=== PATIENT | female | born 1990 | race Caucasian/White ===

== ENCOUNTER 2017-02-08 16:16 | Emergency (ER) | payer MEDICAID ==
[~2017-02-08] VITALS: Ht 175.3 cm; Wt 66.0 kg
[2017-02-08 16:17] VITALS: BP 136/80; PULSE 102; RESP 20; TEMP 98.6; O2SAT 100
--- NOTE | 2017-02-08 16:34 | PD ---
Physical Exam Date Seen by Provider: Feb 08, 2017 Time Seen by Provider: 16:28 Data Data Last Documented VS Vital Signs Date Time Temp Pulse Resp B/P Pulse Ox O2 Delivery O2 Flow Rate FiO2 02/08/17 16:17 98.6 102 20 136/80 100 Room Air MDM Supervised Visit with BALDEMAR: No Narrative Course 26 YO 20 week female with complaint of "swollen taste buds," swollen lips, nausea x 1 week. Worse today. Followed by Dr. Mccullough. Vitals reviewed. Awaiting bed placement. Scripts No Active Prescriptions or Reported Meds Krista Louis Feb 08, 2017 16:34
--- NOTE | 2017-02-08 17:17 | PD ---
HPI Chief Complaint: Related Problem Time Seen by Provider: 16:38 Travel History International Travel<30 days: No Contact w/Intl Traveler<30days: No Traveled to known affect area: No History of Present Illness HPI Patient comes in complaining of irritation to her taste buds ongoing for a week. Patient denies any difficulty breathing, swallowing, fevers, or eating or drinking anything out of the ordinary. Patient states she's been nauseous today and has not been able to eat which is made her symptoms worse. Patient has appointment with her OB on Friday was going to let however her coworkers got her concerned that she decided to come be evaluated. Patient tried to go to [facility] but was redirected to the emergency department. Patient describes symptoms of burning like sensation on her tongue similar to feeling after eating too much sour candy. History Social History Alcohol Use: No Tobacco Use: No Allergies-Medications (Allergen,Severity, Reaction): Coded Allergies: No Known Allergies (Unverified , 02/08/17) Reported Meds & Prescriptions Reported Meds & Active Scripts Active No Active Prescriptions or Reported Medications Review of Systems Except as stated in HPI: all other systems reviewed are Neg Physical Exam Narrative GENERAL: Well-developed, well nourished, in no acute distress, and non-ill appearing. SKIN: Focused skin assessment warm and dry. HEAD: Atraumatic. Normocephalic. EYES: Pupils equal and round. EOMI. No scleral icterus. No injection or drainage. ENT: No nasal bleeding or discharge. Mucous membranes pink and moist. Patient is a geographic tongue. Some irritation to the taste buds noted. There is no evidence of stomatitis, thrush, abscesses, or hairy tongue. NECK: Trachea midline. No cervical lymphadenopathy or stridor. Supple. No nuclear rigidity. CARDIOVASCULAR: Regular rate and rhythm. No murmur appreciated. RESPIRATORY: No accessory muscle use. No respiratory distress. Clear to auscultation. Breath sounds equal bilaterally. Patient speaking in full sentences without difficulty. MUSCULOSKELETAL: No obvious deformities. No clubbing. No cyanosis. No edema. Full range of motion. NEUROLOGICAL: Awake and alert. No obvious cranial nerve deficits. Motor grossly within normal limits. Normal speech. PSYCHIATRIC: Appropriate mood and affect; insight and judgment normal. Data Data Last Documented VS Vital Signs Date Time Temp Pulse Resp B/P Pulse Ox O2 Delivery O2 Flow Rate FiO2 02/08/17 16:17 98.6 102 20 136/80 100 Room Air MDM Medical Screen Exam Complete: Yes Emergency Medical Condition: No Narrative Course History and physical exam findings are not consistent with an emergent medical condition. She was given the option of receiving additional care, but has declined. Therefore the appropriate counseling recommendations were discussed with the patient and she was instructed to follow-up with her primary care physician as soon as possible for reevaluation. Patient was also informed of community resources from which she can obtain additional care. She is agreeable and verbalizes an understanding of the proposed plan. The patient states she will immediately return to the emergency department if her current complaints do not improve, new symptoms arise, or emergent condition develops. Patient ambulated out of the emergency department without difficulty. Discussed patient with Dr. Conroy prior to discharge, who is in agreement with plan of care and disposition. Primary Impression: Encounter for medical screening examination Patient Instructions: General Instructions Departure Forms: Tests/Procedures Scripts No Active Prescriptions or Reported Meds Disposition: [facility]-ED USE ONLY Condition: Stable Haider Lyman Feb 08, 2017 17:17
== END 2017-02-08 17:06 | disposition left against medical advice (07) ==
LOC: NEPD 16:16
DX: R22.9 Localized swelling, mass and lump, unspecified (principal)
CPT/HCPCS: 99281

== ENCOUNTER → 2017-06-16 | Emergency (ER) | payer MEDICAID ==
[~2017-06-16] MED LIST: HEMOTAB PO; LABE100T2 PO
[2017-06-16 21:49] LABS: BASOPHIL % 0.3 % (0.0-2.0); EOSINOPHIL % 0.4 % (0.0-4.0); HEMO FLAGS DIFF FINAL; LYMPHOCYTE # 2.8 TH/MM3 (1.0-4.8); MEAN CELL VOLUME 90.5 FL (80.0-100.0); MEAN CORPUSCULAR HEMOGLOBIN 30.7 PG (27.0-34.0); MEAN CORPUSCULAR HGB CONC 33.9 % (32.0-36.0); MONO % 8.2 % (0.0-8.0); NEUT % 62.1 % (16.0-70.0); PLATELET COUNT 145 TH/MM3 (150-450); RED BLOOD COUNT 3.87 MIL/MM3 (4.00-5.30); RED CELL DISTRIBUTION WIDTH 12.9 % (11.6-17.2); WHITE BLOOD COUNT 9.7 TH/MM3 (4.0-11.0)
[2017-06-16 22:19] LABS: ALT (GPT) 14 U/L (10-53); ANION GAP 11 MEQ/L (5-15); AST (GOT) 12 U/L (15-37); BICARBONATE 20.5 MEQ/L (21.0-32.0); BLOOD UREA NITROGEN 12 MG/DL (7-18); CHLORIDE 105 MEQ/L (98-107); GLOMERULAR FILTRATION RATE 94 ML/MIN (>89); POTASSIUM 4.1 MEQ/L (3.5-5.1); SODIUM (NA) 136 MEQ/L (136-145)
[2017-06-16 22:23] LABS: ALKALINE PHOSPHATASE 156 U/L (45-117); TOTAL BILIRUBIN ADULT 0.3 MG/DL (0.2-1.0)
--- NOTE | 2017-06-17 09:51 | MH ---
cc: BENJY MCCULLOUGH DATE OF ADMISSION: 06/16/2017 She was seen at 20:15. HISTORY OF PRESENT ILLNESS Ms. Win is a 26-year-old white female, para 0-0-1-0, whose last menstrual period and early ultrasound put her at 38+ weeks. She called tonight after having intercourse and had a large gush of blood. She was concerned about the bleeding so I told her to come in. On speculum exam, it seemed like that was probably just her show. However, she did have some elevated blood pressures that we were concerned about so we kept her and did some lab work. PAST OB HISTORY She is para 0-0-1-0. PAST ORDER SELECTOR HISTORY Negative. Her Pap smear was negative. Her cultures are negative. PAST SURGICAL HISTORY D&E on 02/16/2016 for a missed AB. PAST MEDICAL HISTORY 1. Remarkable for anemia. 2. Carrier of Group B Strep. SOCIAL HISTORY She does not smoke; she was a former smoker. She does not drink alcohol. She is single. ALLERGIES No known drug allergies. CURRENT MEDICATIONS vitamins. REVIEW OF SYSTEMS No headaches, no scotoma. No right upper quadrant pain. No shortness of breath. No chest pressure or pain. The baby is moving well. She denies any rupture of membranes. She is having bleeding as in the HPI and that has abated completely. PHYSICAL EXAMINATION GENERAL: Her physical exam reveals a well-developed, well-nourished female in no acute distress, resting comfortably in bed. VITAL SIGNS: Her initial blood pressure was 130/80 and that is about where was in the first trimester. Her heart rate is 76. Her temperature is 98.4. Her tracings is Category I. HEENT: Normocephalic, atraumatic. NECK: Supple. Trachea is in the midline. There is no thyromegaly or adenopathy. CHEST: Clear to auscultation. HEART: Regular rate and rhythm. ABDOMEN: The abdomen is gravid, nontender. The fundus is nontender. The fundus is soft and the cervix is fingertip. I feel a bag there. On speculum exam there is a little bit of blood but there is no active bleeding. There is definitely no rupture of membranes that I can tell. EXTREMITIES: There is no clubbing, cyanosis or edema. Her ankles are easily visible and there is no swelling. The DTRs are +2 and equal. ASSESSMENT AND PLAN 1. Intrauterine at 38+ weeks. 2. Labile blood pressure with a little bit of protein in her urine. She has no other signs or symptoms of preeclampsia. Her first trimester blood pressure at 11 weeks and 1 day was 114/80. I do not think she is pre-eclamptic. 3. Carrier of Group B Strep. We need to give her penicillin when she is in labor. 4. Anemia. We will check her CBC when she comes in for labor but right now her hemoglobin is 11.9 which is normal. We plan to go ahead and send her home and if she continues leaking or having any more bleeding, she will come in. She was told to keep an eye on how the baby is moving. R. Benjy Mccullough MD RJV/SSB /10:47 PM /2:11 PM
== END | disposition home or self-care (01) ==
LOC: HOBED 20:01
DX: O46.93 Antepartum hemorrhage, unspecified, third trimester (principal); O99.013 Anemia complicating pregnancy, third trimester; O99.820 Streptococcus B carrier state complicating pregnancy; Z3A.38 38 weeks gestation of pregnancy
CPT/HCPCS: 59025; 80053; 85025

== ENCOUNTER 2017-06-24 12:02 | Inpatient (IN) | payer MEDICAID ==
[~2017-06-24] VITALS: Ht 175.3 cm; Wt 73.0 kg
[2017-06-24 12:29] VITALS: BP 147/106; PULSE 82
[2017-06-24] MEDS ORDERED: LIDOCAINE HCL 1% 50 ML VIAL INFIL PRN (13:00)
[2017-06-24] MEDS ORDERED: LIDOCAINE HCL 1% 50 ML VIAL I-DERMAL PRN (13:00)
[2017-06-24] MEDS ORDERED: MINERAL OIL 10 ML VIAL TOPICAL PRN (13:00)
[2017-06-24] MEDS ORDERED: CITRIC ACID-SODIUM CITRATE LIQ 30 ML UDC PO SCH (13:00)
[2017-06-24] MEDS ORDERED: NS 1000 ML IV PRN (13:00)
[2017-06-24] MEDS ORDERED: OXYTOCIN 30 UNITS 500ML PREMIX IV ONE (13:00)
[2017-06-24] MEDS ORDERED: PENICILLIN G POT 5,000,000 UNITS/NS 100 ML (Mini-Bag Plus) IV ONE ×2 (13:00)
[2017-06-24] MEDS ORDERED: NS 500 ML BOLUS IV PRN (13:00)
[2017-06-24] MEDS ORDERED: LACTATED RINGER'S 1000 ML BOLUS IV PRN (13:00)
[2017-06-24] MEDS ORDERED: [UNRECOGNIZED DRUG - OTHER] IV ONE (13:15)
[2017-06-24] MEDS ORDERED: NS 1000 ML OTHER PRN (13:15)
[2017-06-24] MEDS ORDERED: MAGNESIUM SULFATE 4 GM IV ONE (13:15)
[2017-06-24] MEDS ORDERED: MISOPROSTOL 25 MCG SUPP VAGINAL ONE (13:15)
[2017-06-24] MEDS: LACTATED RINGER'S 1000 ML IV SCH ×2 (13:17→20:46)
[2017-06-24 13:21] VITALS: RESP 18
[2017-06-24 13:33] LABS: AUTOMATED NEUTROPHIL # 6.3 TH/MM3 (1.8-7.7); BASOPHIL % 0.3 % (0.0-2.0); EOSINOPHIL % 0.4 % (0.0-4.0); HEMATOCRIT 36.4 % (35.0-46.0); HEMO FLAGS DIFF FINAL; LYMPH % 26.2 % (9.0-44.0); LYMPHOCYTE # 2.6 TH/MM3 (1.0-4.8); MEAN CELL VOLUME 91.4 FL (80.0-100.0); MEAN CORPUSCULAR HEMOGLOBIN 30.7 PG (27.0-34.0); MEAN CORPUSCULAR HGB CONC 33.6 % (32.0-36.0); MONO % 8.5 % (0.0-8.0); NEUT % 64.6 % (16.0-70.0); PLATELET COUNT 135 TH/MM3 (150-450); RED BLOOD COUNT 3.99 MIL/MM3 (4.00-5.30); WHITE BLOOD COUNT 9.7 TH/MM3 (4.0-11.0)
[2017-06-24 13:41] LABS: BLOOD, URINE MOD (NEG); COMMENT (UR) CULTURE INDICATED; CULTURE IF INDICATED CULTURE INDICATED; GLUCOSE,URINE NEG (NEG); KETONE, URINE NEG (NEG); MUCUS URINE FEW /lpf (OCC); NITRITE,URINE NEG (NEG); PH, URINE 6.5 (5.0-8.5); SQUAMOUS EPITHELIAL CELL URINE 10 /hpf (0-5); URINE COLOR YELLOW (YELLW/STRAW)
[2017-06-24 13:56] LABS: URIC ACID 8.3 MG/DL (2.6-6.0)
[2017-06-24 13:58] LABS: INDIRECT BILIRUBIN 0.2 MG/DL (0.0-0.8); TOTAL BILIRUBIN ADULT 0.3 MG/DL (0.2-1.0)
[2017-06-24] MEDS ORDERED: MAGNESIUM SULFATE 40 GM PREMIX 1,000 ML IV SCH (14:00)
[2017-06-24] MEDS ORDERED: PENICILLIN G POT 2,500,000 UNITS/NS 100 ML IV SCH ×2 (17:00)
[2017-06-24 17:20] VITALS: BP 133/92; PULSE 84; TEMP 99
[2017-06-24 17:21] VITALS: RESP 18
[2017-06-24] MEDS: MISOPROSTOL 25 MCG SUPP VAGINAL SCH ×2 (17:23→21:45)
[2017-06-24] MEDS ORDERED: ZOLPIDEM TARTRATE 5 MG TAB PO PRN (18:00)
--- NOTE | 2017-06-24 18:16 | MH ---
cc: BENJY CORREA DATE OF ADMISSION 06/24/2017 HISTORY OF THE PRESENT ILLNESS Ms. Win is a 26-year-old white female para 0-0-1-0 who is at 39+ weeks. She presented to the office with high blood pressure and a proteinuria. She denies any signs or symptoms of preeclampsia but her blood pressure remains elevated. We sent her over for delivery due to the preeclampsia. She understands the risks and benefits and the rationale behind induction at this time. PAST OB HISTORY She is para 0-0-1-0. She had a missed AB and had a dilation and curettage in 2016. She is GBS positive. PAST KNIFEMAN HISTORY Negative. PAST SURGICAL HISTORY Remarkable for ____. PAST MEDICAL HISTORY Negative. SOCIAL HISTORY Never smoker. She does not take drugs. She did have one glass of wine during her . She has never smoked. FAMILY HISTORY Negative. ALLERGIES NO KNOWN DRUG ALLERGIES. MEDICATIONS Current medications: Are none. REVIEW OF SYSTEMS She denies any scatoma, headaches. No chest pain. No chest pressure. She reports good movement. Denies any rupture of membranes, bleeding. PHYSICAL EXAMINATION GENERAL: Reveals a well-developed, well-nourished female who is slightly swollen. VITAL SIGNS: Her blood pressure is 147/106. HEENT: Normocephalic, atraumatic. NECK: Supple. Trachea is midline. No thyromegaly or adenopathy. CHEST: Clear to auscultation. HEART: Regular rate and rhythm without murmur. ABDOMEN: Gravid. Nontender. The fundus is not tender and appropriate height. PELVIC: Cervix is 1-2 cm, 70% effaced, vertex, -3, soft. LABORATORY DATA Her platelets are slightly low at 135. Her liver enzymes are normal. Her urine reveals 300 of protein. ASSESSMENT 1. Intrauterine at 39+ weeks. 2. Preeclampsia. PLAN 1. We will go ahead and admit her to the hospital. Get her Cytotec 2 or 3 doses until she goes into labor. If she does not go into labor after several doses of Cytotec, I would start Pitocin, break her water and see if we accomplish a vaginal delivery. 2. GBS positive. I would go ahead and give her penicillin with labor once the labor starts. I would also start magnesium sulfate once the labor starts. 3. Possibly urinary tract infection. We will check a culture tomorrow. I just stripped her before she came to the hospital so I feel that is probably why her urine looks dirty. R. MD HINA JerryV/KK /5:45 PM /5:50 PM
[2017-06-24 21:43] VITALS: BP 143/91; PULSE 99; RESP 18; TEMP 98.2
[2017-06-25] VITALS (93 sets, daily range): BP systolic 125–176; BP diastolic 72–123; PULSE 70–176; RESP 18; TEMP 98.2–99.4; O2SAT 96–100
[2017-06-25] MEDS ORDERED: MAGNESIUM SULFATE 4 GM PREMIX 100 ML ONE (03:45)
[2017-06-25] MEDS ORDERED: OXYTOCIN 30 UNITS/NS 500ML PREMIX IV SCH (04:00)
[2017-06-25] MEDS: LACTATED RINGER'S 1000 ML IV SCH (05:00)
[2017-06-25] MEDS ORDERED: fentaNYL 2MCG-BUPIV 0.125% INJ 100 ML ONE (05:26)
[2017-06-25] MEDS ORDERED: ePHEDrine/NS 25 MG/5 ML SYR IV PUSH PRN (06:15)
[2017-06-25] MEDS ORDERED: DO NOT ADMINISTER ANTICOAGULANTS PRN (06:15)
[2017-06-25] MEDS ORDERED: NO SYSTEM NARCOTICS PRN (06:15)
[2017-06-25] MEDS ORDERED: fentaNYL 2MCG-BUPIV 0.125% 100 ML EPIDURAL SCH (06:15)
--- NOTE | 2017-06-25 07:25 | HHI.PR ---
Subjective Remarks doing ok I do not like this magnesium,, My cervix is 5cm!! Objective Vital Signs Date Time Temp Pulse Resp B/P (MAP) Pulse Ox O2 Delivery O2 Flow Rate FiO2 06/25/17 07:00 105 125/96 (106) 99 06/25/17 06:55 95 98 06/25/17 06:50 102 99 06/25/17 06:47 18 06/25/17 06:45 96 137/88 (104) 97 06/25/17 06:45 96 06/25/17 06:40 89 97 06/25/17 06:35 96 98 06/25/17 06:30 138/95 (109) 98 06/25/17 06:30 97 06/25/17 06:25 103 99 06/25/17 06:20 95 98 06/25/17 06:15 144/99 (114) 98 06/25/17 06:15 97 06/25/17 06:10 98 98 06/25/17 06:05 99 98 06/25/17 06:00 126/90 (102) 99 06/25/17 06:00 135 06/25/17 05:55 103 06/25/17 05:55 145/100 (115) 99 06/25/17 05:54 18 06/25/17 05:51 106 153/92 (112) 06/25/17 05:50 108 98 06/25/17 05:45 117 143/93 (110) 98 06/25/17 05:40 119 166/111 (129) 98 06/25/17 05:37 176/94 (121) 06/25/17 05:37 83 06/25/17 05:35 124 99 06/25/17 05:34 110 06/25/17 05:34 165/123 (137) 06/25/17 05:30 171/106 (127) 06/25/17 05:30 109 98 06/25/17 05:20 98 97 06/25/17 05:15 103 164/108 (126) 99 06/25/17 05:10 103 99 06/25/17 05:05 95 97 06/25/17 05:00 102 06/25/17 04:55 101 97 06/25/17 04:50 112 98 06/25/17 04:45 153/99 (117) 98 06/25/17 04:45 95 06/25/17 04:40 107 151/98 (115) 06/25/17 04:35 113 06/25/17 04:35 96 06/25/17 04:35 159/99 (119) 06/25/17 04:33 18 06/25/17 04:31 101 06/25/17 04:20 84 156/93 (114) 06/25/17 04:20 20 06/25/17 04:18 77 143/88 (106) 06/25/17 02:48 70 157/92 (113) 06/24/17 21:43 18 06/24/17 21:43 98.2 06/24/17 21:43 99 143/91 (108) 06/24/17 17:21 18 06/24/17 17:20 84 133/92 (106) 06/24/17 17:20 99.0 06/24/17 13:21 18 06/24/17 12:29 82 147/106 (120) Result Diagram: 06/24/17 1245 Assessment and Plan Assessment and Plan IUP @ 39/2 Preeclampsia continue the Mag and expect a Basil Mccullough MD Jun 25, 2017 07:25
[2017-06-25] MEDS ORDERED: NIFEdipine 10 MG CAP ONE (10:07)
[2017-06-25] MEDS ORDERED: MISOPROSTOL 100 MCG TAB ONE (12:09)
[2017-06-25] MEDS ORDERED: OXYTOCIN 10 UNIT/ML AMP ONE (12:19)
--- NOTE | 2017-06-25 12:30 | PD.OB.DELI ---
Weeks gestation: 39 Gest age assessed date: Jun 25, 2017 Pt started active labor?: Yes Medical induction of labor?: Yes Medical induction start date: Jun 24, 2017 Artificial rupture of membrane: No Anesthesia: Epidural Episiotomy: Midline Vaginal Delivery: Normal Presentation: Occiput anterior Nuchal Cord: None Delayed cord clamping (45 sec): Yes Infant: Male Delivery date: Jun 25, 2017 Delivery time: 00:00 One Minute : 8 Five Minute : 8 Weight: 7/1 Placenta: Manual removal, Intact, Uterus explored +, 3 vessel cord Laceration: Episiotomy, 2 deg Repair: Vicryl running Estimated blood loss: 700 Additional Information Nice delivery Placenta not delivered after 15 minutes then I did a manual extraction. Uterus was atonic probably due to the magnesium. cytotec given 600 micrograms. Pitocin 10U IV.. Will massage uterus often and watch carefully. Basil Mccullough MD Jun 25, 2017 12:30
[2017-06-25] MEDS ORDERED: BENZOCAINE 20% TOPICAL SPRAY 60 ML CAN TOPICAL PRN (12:45)
[2017-06-25] MEDS ORDERED: CALCIUM GLUCONATE 10% 1 GM/10 ML VIAL IV PUSH PRN ×2 (12:45→14:30)
[2017-06-25] MEDS ORDERED: WITCH HAZEL 50%/GLYCERIN 12.5% 40 PAD JAR TOPICAL PRN (12:45)
[2017-06-25] MEDS ORDERED: LABETALOL HCL 100 MG/20 ML VIAL IV PUSH PRN ×3 (12:45→15:00)
[2017-06-25] MEDS ORDERED: DOCUSATE SODIUM 50 MG/SENNA 8.6 MG TAB PO PRN (12:45)
[2017-06-25] MEDS ORDERED: ALUMINUM/MAGNESIUM/SIMETH 30 ML CUP PO PRN (12:45)
[2017-06-25] MEDS ORDERED: ONDANSETRON ODT 4 MG TAB PO PRN (12:45)
[2017-06-25] MEDS ORDERED: oxyCODONE/ACETAMINOPHEN 5 MG/325 MG TAB PO PRN ×2 (12:45)
[2017-06-25] MEDS ORDERED: NIFEdipine 20 MG CAP PO PRN ×2 (14:30)
[2017-06-25] MEDS ORDERED: NIFEdipine 10 MG CAP PO PRN (14:30)
[2017-06-25] MEDS ORDERED: MISOPROSTOL 100 MCG TAB RECTAL ONE (14:45)
[2017-06-25] MEDS ORDERED: MISOPROSTOL 100 MCG TAB PO ONE (14:45)
[2017-06-25] MEDS ORDERED: OXYTOCIN 10 UNIT/ML AMP IV ONE (14:45)
[2017-06-25] MEDS ORDERED: OXYTOCIN 30 UNITS-500ML PREMIX 500 ML IV SCH (15:00)
[2017-06-25] MEDS ORDERED: OXYTOCIN 30 UNITS-500ML PREMIX 500 ML IV ONE ×2 (15:00→18:00)
[2017-06-25] MEDS ORDERED: hydrALAZINE HCL 20 MG/ML VIAL IV PUSH PRN ×2 (15:15)
[2017-06-25] MEDS ORDERED: MEASLES, MUMPS, RUBELLA VACCINE 0.5 ML VIAL SQ ONE (16:00)
[2017-06-25] MEDS ORDERED: DIPHTH/TETANUS/ACEL PERTUSSIS (BOOSTER) 0.5 ML VIAL/PFS IM ONE (16:00)
[2017-06-25] MEDS: ACETAMINOPHEN 325 MG TAB PO PRN ×2 (16:07→23:09)
[2017-06-25 17:08] LABS: HEMATOCRIT 32.8 % (35.0-46.0); MEAN CELL VOLUME 91.1 FL (80.0-100.0); MEAN CORPUSCULAR HEMOGLOBIN 30.1 PG (27.0-34.0); PLATELET COUNT 123 TH/MM3 (150-450); RED CELL DISTRIBUTION WIDTH 13.2 % (11.6-17.2); REVIEW FLAG FINAL
[2017-06-25 17:21] LABS: ALKALINE PHOSPHATASE 130 U/L (45-117); ALT (GPT) 28 U/L (10-53); ANION GAP 11 MEQ/L (5-15); AST (GOT) 40 U/L (15-37); BICARBONATE 17.9 MEQ/L (21.0-32.0); BLOOD UREA NITROGEN 12 MG/DL (7-18); CHLORIDE 104 MEQ/L (98-107); GLOMERULAR FILTRATION RATE 77 ML/MIN (>89); POTASSIUM 3.8 MEQ/L (3.5-5.1); SODIUM (NA) 133 MEQ/L (136-145); TOTAL BILIRUBIN ADULT 0.3 MG/DL (0.2-1.0)
[2017-06-25] MEDS: SODIUM CHLORIDE 0.9% FLUSH 10 ML FLUSH IV FLUSH SCH (20:19)
[2017-06-25] MEDS ORDERED: ZOLPIDEM TARTRATE 5 MG TAB PO PRN (21:00)
[2017-06-26] VITALS (14 sets, daily range): BP systolic 124–152; BP diastolic 75–113; PULSE 82–96; RESP 18; TEMP 97.7–98.1
[2017-06-26] MEDS: MAGNESIUM SULFATE 40 GM PREMIX 1,000 ML IV SCH ×2 (00:46→11:00)
[2017-06-26] MEDS: ACETAMINOPHEN 325 MG TAB PO PRN (04:19)
[2017-06-26] MEDS: LACTATED RINGER'S 1000 ML INJ 1,000 ML IV SCH ×2 (04:20→09:43)
[2017-06-26] MEDS: SODIUM CHLORIDE 0.9% FLUSH 10 ML FLUSH IV FLUSH SCH ×2 (09:00→21:00)
[2017-06-26 12:56] LABS: AUTOMATED NEUTROPHIL # 7.5 TH/MM3 (1.8-7.7); BASOPHIL % 0.2 % (0.0-2.0); EOSINOPHIL % 0.1 % (0.0-4.0); MEAN CELL VOLUME 90.5 FL (80.0-100.0); MEAN CORPUSCULAR HEMOGLOBIN 31.2 PG (27.0-34.0); MEAN CORPUSCULAR HGB CONC 34.4 % (32.0-36.0); MONO % 8.8 % (0.0-8.0); NEUT % 71.9 % (16.0-70.0); PLATELET COUNT 55 TH/MM3 (150-450); RED BLOOD COUNT 2.99 MIL/MM3 (4.00-5.30); RED CELL DISTRIBUTION WIDTH 13.5 % (11.6-17.2); WHITE BLOOD COUNT 10.4 TH/MM3 (4.0-11.0)
[2017-06-26 13:08] LABS: HEMO FLAGS AUTO DIFF
[2017-06-26 13:10] LABS: PLATELET ESTIMATE SMEAR LOW (NORMAL); PLATELET MORPHOLOGY NORMAL (NORMAL); SCAN/DIFF AUTO DIFF CONFIRMED
[2017-06-26 13:20] LABS: BICARBONATE 23.3 MEQ/L (21.0-32.0)
[2017-06-26 13:23] LABS: TOTAL BILIRUBIN ADULT 0.5 MG/DL (0.2-1.0)
[2017-06-26 13:27] LABS: CALCIUM-PROTEIN CORRECTED 7.4 MG/DL (8.5-10.1)
--- NOTE | 2017-06-26 15:26 | PD.PN.STU ---
Subjective Remarks Ms. Win is preeclamptic and post day one. she currently has no complaints and pain is controlled with tylenol. She reports normal vaginal bleeding. She denies headache, scotoma, shortness of breath, chest pain, abdominal pain, and edema. Objective Vitals Allergies Coded Allergies Type Severity Reaction Last Updated Verified No Known Allergies 02/08/17 No Laboratory Tests Test 06/24/17 12:45 06/25/17 16:45 06/26/17 12:33 White Blood Count 9.7 TH/MM3 21.0 TH/MM3 10.4 TH/MM3 Red Blood Count 3.99 MIL/MM3 3.60 MIL/MM3 2.99 MIL/MM3 Hemoglobin 12.2 GM/DL 10.8 GM/DL 9.3 GM/DL Hematocrit 36.4 % 32.8 % 27.0 % Mean Corpuscular Volume 91.4 FL 91.1 FL 90.5 FL Mean Corpuscular Hemoglobin 30.7 PG 30.1 PG 31.2 PG Mean Corpuscular Hemoglobin Concent 33.6 % 33.0 % 34.4 % Red Cell Distribution Width 13.0 % 13.2 % 13.5 % Platelet Count 135 TH/MM3 123 TH/MM3 55 TH/MM3 Mean Platelet Volume 10.9 FL 10.2 FL 8.6 FL Neutrophils (%) (Auto) 64.6 % 71.9 % Lymphocytes (%) (Auto) 26.2 % 19.0 % Monocytes (%) (Auto) 8.5 % 8.8 % Eosinophils (%) (Auto) 0.4 % 0.1 % Basophils (%) (Auto) 0.3 % 0.2 % Neutrophils # (Auto) 6.3 TH/MM3 7.5 TH/MM3 Lymphocytes # (Auto) 2.6 TH/MM3 2.0 TH/MM3 Monocytes # (Auto) 0.8 TH/MM3 0.9 TH/MM3 Eosinophils # (Auto) 0.0 TH/MM3 0.0 TH/MM3 Basophils # (Auto) 0.0 TH/MM3 0.0 TH/MM3 CBC Comment DIFF FINAL AUTO DIFF Differential Comment AUTO DIFF CONFIRMED Urine Color YELLOW Urine Turbidity HAZY Urine pH 6.5 Urine Specific [place] 1.027 Urine Protein 300 mg/dL Urine Glucose (UA) NEG mg/dL Urine Ketones NEG mg/dL Urine Occult Blood MOD Urine Nitrite NEG Urine Bilirubin NEG Urine Urobilinogen LESS THAN 2.0 MG/DL Urine Leukocyte Esterase MOD Urine RBC 1 /hpf Urine WBC 20 /hpf Urine Squamous Epithelial Cells 10 /hpf Urine Mucus FEW /lpf Microscopic Urinalysis Comment CULTURE INDICATED Uric Acid 8.3 MG/DL Total Bilirubin 0.3 MG/DL 0.3 MG/DL 0.5 MG/DL Direct Bilirubin 0.1 MG/DL Indirect Bilirubin 0.2 MG/DL Aspartate Amino Transf (AST/SGOT) 13 U/L 40 U/L 98 U/L Alanine Aminotransferase (ALT/SGPT) 15 U/L 28 U/L 76 U/L Alkaline Phosphatase 157 U/L 130 U/L 97 U/L Total Protein 6.8 GM/DL 5.8 GM/DL 5.2 GM/DL Albumin 2.6 GM/DL 2.1 GM/DL 2.0 GM/DL Blood Urea Nitrogen 12 MG/DL 11 MG/DL Creatinine 0.88 MG/DL 0.63 MG/DL Random Glucose 140 MG/DL 93 MG/DL Calcium Level 7.6 MG/DL 6.5 MG/DL Sodium Level 133 MEQ/L 139 MEQ/L Potassium Level 3.8 MEQ/L 4.0 MEQ/L Chloride Level 104 MEQ/L 108 MEQ/L Carbon Dioxide Level 17.9 MEQ/L 23.3 MEQ/L Anion Gap 11 MEQ/L 8 MEQ/L Estimat Glomerular Filtration Rate 77 ML/MIN 113 ML/MIN Platelet Estimate LOW Platelet Morphology Comment NORMAL Protein Corrected Calcium 7.4 MG/DL Orders Procedure Category Date Status Time Admit To Inpatient ADMITTING 06/24/17 Transmitted Diet Liquid DIET 06/24/17 Complete Lunch Hold Clot BBK 06/24/17 Complete 12:40 Abo/Rh Blood Type [facility] 06/24/17 Complete 12:40 Urinalysis - C+S If LAB 06/24/17 Complete Indicated 12:40 Resp Oxygen Non RSP 06/24/17 Complete Rebreathe Mask Uric Acid LAB 06/24/17 Complete 12:40 Hepatic Functional LAB 06/24/17 Complete Panel 12:40 Complete Blood Count LAB 06/24/17 Complete With Diff 12:40 Sodium Chlorid 0.9% MED 06/24/17 Complete 500 Ml Inj (Ns 500 M 13:00 Lactated Ringer's MED 06/24/17 Complete 1000 Ml Inj (Lr 1000 M 13:00 Lactated Ringer's MED 06/24/17 Complete 1000 Ml Inj (Lr 1000 M 13:00 Citric Acid-Sodium MED 06/24/17 Complete Citrate Liq (Bicitra 13:00 Sodium Chlor 0.9% MED 06/24/17 Complete 1000 Ml Inj (Ns 1000 M 13:00 Lidocaine 1% Inj (50 MED 06/24/17 Complete Ml) (Xylocaine 1% I 13:00 Fentanyl Inj MED 06/24/17 Complete (Fentanyl Inj) 13:00 Fentanyl Inj MED 06/24/17 Complete (Fentanyl Inj) 13:00 Penicillin G MED 06/24/17 Complete Potassium Inj 13:00 Penicillin G MED 06/24/17 Complete Potassium Inj 17:00 Oxytocin 30 MED 06/24/17 Complete Units-500ml Premix 13:00 Lidocaine 1% Inj (50 MED 06/24/17 Complete Ml) (Xylocaine 1% I 13:00 Light Mineral Oil MED 06/24/17 Complete (Muri-Lube Oil) 13:00 Misoprostol Supp MED 06/24/17 Complete (Cytotec Supp) 13:15 Sodium Chlor 0.9% MED 06/24/17 Complete 1000 Ml Inj (Ns 1000 M 13:15 Magnesium Sulfate 4 MED 06/24/17 Complete Gm Premix (Magnesium 13:15 Magnesium Sulfate 40 MED 06/24/17 Complete Gm Premix (Magnesiu 14:00 Urine Culture GABRIELLE 06/24/17 Complete 12:45 Misoprostol Supp MED 06/24/17 Complete (Cytotec Supp) 18:00 Zolpidem (Ambien) MED 06/24/17 Complete 18:00 Oxytocin 30 MED 06/25/17 Complete Units-500ml Premix 04:00 Magnesium Sulfate 4 MED 06/25/17 Complete Gm Premix (Magnesium 03:45 Fentanyl 2mcg-Bupiv MED 06/25/17 Complete 0.125% Inj (Fentanyl 05:26 Misc Nursing MED 06/25/17 Complete Information 06:15 Misc Nursing MED 06/25/17 Complete Information 06:15 Fentanyl Inj MED 06/25/17 Complete (Fentanyl Inj) 06:15 Fentanyl 2mcg-Bupiv MED 06/25/17 Complete 0.125% Inj (Fentanyl 06:15 Ephedrine/Ns 25 Mg/5 MED 06/25/17 Complete Ml Syr (Ephedrine/N 06:15 Nifedipine (Procardia) MED 06/25/17 Complete 10:07 Misoprostol (Cytotec) MED 06/25/17 Complete 12:09 Oxytocin Inj (Pitocin MED 06/25/17 Complete Inj) 12:19 Cbc No Diff, Includes LAB 06/25/17 Complete Plts 16:00 Comprehensive LAB 06/25/17 Complete Metabolic Panel 16:00 Specimen To Be MIKEY 06/25/17 In Process Collected 12:31 Oxytocin 30 MED 06/25/17 Complete Units-500ml Premix 15:00 Code Status CODE 06/25/17 Transmitted 12:31 Intake + Output MIKEY 06/25/17 Complete 12:31 Heart MIKEY 06/25/17 In Process 12:31 Urinary Catheter MIKEY 06/25/17 Complete Management 12:31 ^ Check Deep Tendon MIKEY 06/25/17 In Process Reflexes 12:31 Lactated Ringer's MED 06/25/17 In Process 1000 Ml Inj (Lr 1000 M 15:00 Magnesium Sulfate 40 MED 06/25/17 In Process Gm Premix (Magnesiu 15:00 Labetalol Inj MED 06/25/17 Complete (Trandate Inj) 12:45 Calcium Gluconate Inj MED 06/25/17 In Process (Calcium Gluconate 12:45 Vital Signs (Adult) MIKEY 06/25/17 In Process 12:31 Activity Oob Ad Lyric MIKEY 06/25/17 In Process 12:31 Ice / Cold Pack MIKEY 06/25/17 In Process 12:31 Discontinue Iv MIKEY 06/25/17 In Process 12:31 Sitz Bath MIKEY 06/25/17 In Process 12:31 ^ Massage MIKEY 06/25/17 In Process 12:31 ^ Rhogam MIKEY 06/25/17 In Process 12:31 Urinary Catheter MIKEY 06/25/17 In Process Management 12:31 Diet Regular Basic DIET 06/25/17 Transmitted Lunch Sodium Chloride 0.9% MED 06/25/17 In Process Flush (Ns Flush) 21:00 Sodium Chloride 0.9% MED 06/25/17 In Process Flush (Ns Flush) 12:45 Oxytocin 30 MED 06/25/17 Complete Units-500ml Premix 15:00 Acetaminophen MED 06/25/17 In Process (Tylenol) 12:45 Ibuprofen (Motrin) MED 06/25/17 In Process 12:45 Oxycodone-Acetamin MED 06/25/17 In Process 5-325 Mg (Percocet 12:45 Oxycodone-Acetamin MED 06/25/17 In Process 5-325 Mg (Percocet 12:45 Benzocaine 20% Top MED 06/25/17 In Process Spr (Americaine 20% T 12:45 Witch Nikia-Glycerin MED 06/25/17 In Process Pad (Tucks Pads) 12:45 Docusate Sodium-Senna MED 06/25/17 In Process (Marion-Colace) 12:45 Zolpidem (Ambien) MED 06/25/17 In Process 21:00 Zzrzjqq-Cbnoc-Dvikpob MED 06/25/17 Complete Inj (M-M-R Ii Inj) 16:00 Iazt-Qar-Qnohfo MED 06/25/17 Complete (Booster) Inj 16:00 Al-Mag Hy-Si 40-40-4 MED 06/25/17 In Process Mg/Ml Liq (Mag-Al P 12:45 Ondansetron Odt MED 06/25/17 In Process (Zofran Odt) 12:45 Nifedipine (Procardia) MED 06/25/17 Complete 14:30 Nifedipine (Procardia) MED 06/25/17 Complete 14:30 Nifedipine (Procardia) MED 06/25/17 Complete 14:30 Misoprostol (Cytotec) MED 06/25/17 Complete 14:45 Misoprostol (Cytotec) MED 06/25/17 Complete 14:45 Oxytocin Inj (Pitocin MED 06/25/17 Complete Inj) 14:45 Labetalol Inj MED 06/25/17 Complete (Trandate Inj) 15:00 Labetalol Inj MED 06/25/17 Complete (Trandate Inj) 15:00 Hydralazine Inj MED 06/25/17 Complete (Apresoline Inj) 15:15 Hydralazine Inj MED 06/25/17 Complete (Apresoline Inj) 15:15 Oxytocin 30 MED 06/25/17 Complete Units-500ml Premix 18:00 Complete Blood Count LAB 06/26/17 Complete With Diff 12:26 Comprehensive LAB 06/26/17 Complete Metabolic Panel 12:26 Instruction MIKEY 06/26/17 In Process 12:26 Vital Signs Date Time Temp Pulse Resp B/P (MAP) Pulse Ox O2 Delivery O2 Flow Rate FiO2 06/26/17 12:48 18 06/26/17 12:42 98.1 06/26/17 11:00 89 139/94 (109) 06/26/17 10:00 86 142/90 (107) 06/26/17 09:01 87 152/113 (126) 06/26/17 08:53 87 140/92 (108) 06/26/17 08:27 96 149/107 (121) 06/26/17 06:00 91 128/75 (92) 06/26/17 05:19 18 06/26/17 05:00 93 144/94 (111) 06/26/17 04:18 97.7 18 06/26/17 04:01 93 142/89 (106) 06/26/17 02:00 82 124/77 (93) 06/26/17 01:04 18 06/25/17 23:00 95 135/82 (99) 06/25/17 21:30 92 137/87 (104) 06/25/17 21:21 95 141/85 (103) 06/25/17 21:20 18 06/25/17 21:20 97 100 17 21:15 97 100 06/25/17 21:10 105 99 06/25/17 21:05 106 06/25/17 21:05 99 06/25/17 21:00 99 06/25/17 21:00 98 06/25/17 21:00 163/107 (125) 06/25/17 20:55 96 98 17 20:45 99 97 17 20:40 107 99 17 20:35 102 98 17 20:30 100 98 1817 20:25 99 98 1817 20:20 99 98 17 20:15 100 98 18 20:10 102 98 1817 20:09 99 06/25/17 20:06 98.9 18 06/25/17 20:00 18 06/25/17 20:00 99 157/105 (122) 06/25/17 19:00 18 06/25/17 19:00 105 158/104 (122) 06/25/17 18:00 108 154/105 (121) 06/25/17 17:47 18 10/18/17 17:00 18 06/25/17 16:01 105 154/95 (114) 06/25/17 16:00 18 06/25/17 15:08 99.4 06/25/17 14:10 18 06/25/17 14:00 113 142/96 (111) 06/25/17 13:55 18 06/25/17 13:45 109 144/89 (107) 06/25/17 13:30 118 144/87 (106) 06/25/17 13:10 18 06/25/17 13:00 122 127/72 (90) 06/25/17 12:48 148/75 (99) 06/25/17 12:47 18 06/25/17 10:40 176 155/94 (114) 06/25/17 10:32 121 157/97 (117) 06/25/17 10:20 107 153/109 (124) 06/25/17 10:02 162/110 (127) 06/25/17 10:02 18 06/25/17 10:02 107 06/25/17 10:00 106 157/110 (126) 06/25/17 09:30 105 149/104 (119) 06/25/17 09:14 18 06/25/17 09:14 98.6 06/25/17 09:00 107 145/104 (118) 06/25/17 08:30 98 136/86 (103) 06/25/17 08:15 18 06/25/17 08:05 94 149/100 (116) 06/25/17 08:00 100 157/90 (112) 06/25/17 07:34 98 142/95 (111) 06/25/17 07:30 95 06/25/17 07:16 98.2 18 06/25/17 07:15 116 99 06/25/17 07:10 114 99 06/25/17 07:05 106 98 06/25/17 07:00 101 06/25/17 07:00 105 125/96 (106) 99 06/25/17 06:55 95 98 06/25/17 06:50 102 99 17 06:47 18 06/25/17 06:45 96 137/88 (104) 97 06/25/17 06:45 96 06/25/17 06:40 89 97 10/18/17 06:35 96 98 18/17 06:30 138/95 (109) 98 18/17 06:30 97 18/17 06:25 103 99 18/17 06:20 95 98 18/17 06:15 144/99 (114) 98 18/17 06:15 97 18/17 06:10 98 98 18/17 06:05 99 98 1817 06:00 126/90 (102) 99 1817 06:00 135 18/17 05:55 103 18/17 05:55 145/100 (115) 99 18/17 05:54 18 18/17 05:51 106 153/92 (112) 18/17 05:50 108 98 18/17 05:45 117 143/93 (110) 98 18/17 05:40 119 166/111 (129) 98 18/17 05:37 176/94 (121) 18/17 05:37 83 18/17 05:35 124 99 18/17 05:34 110 18/17 05:34 165/123 (137) 18/17 05:30 171/106 (127) 18/17 05:30 109 98 18/17 05:20 98 97 18/17 05:15 103 164/108 (126) 99 18/17 05:10 103 99 18/17 05:05 95 97 18/17 05:00 102 18/17 04:55 101 97 18/17 04:50 112 98 18/17 04:45 153/99 (117) 98 18/17 04:45 95 18/17 04:40 107 151/98 (115) 18/17 04:35 113 18/17 04:35 96 18/17 04:35 159/99 (119) 18/17 04:33 18 18/17 04:31 101 1018/17 04:20 84 156/93 (114) 18/17 04:20 20 18/17 04:18 77 143/88 (106) 1817 02:48 70 157/92 (113) 06/24/17 21:43 18 06/24/17 21:43 98.2 06/24/17 21:43 99 143/91 (108) 06/24/17 17:21 18 06/24/17 17:20 84 133/92 (106) 06/24/17 17:20 99.0 06/24/17 13:21 18 06/24/17 12:29 82 147/106 (120) Vital Signs Date Time Temp Pulse Resp B/P (MAP) Pulse Ox O2 Delivery O2 Flow Rate FiO2 06/26/17 12:48 18 06/26/17 12:42 98.1 06/26/17 11:00 89 139/94 (109) 06/26/17 10:00 86 142/90 (107) 06/26/17 09:01 87 152/113 (126) 06/26/17 08:53 87 140/92 (108) 06/26/17 08:27 96 149/107 (121) 06/26/17 06:00 91 128/75 (92) 06/26/17 05:19 18 06/26/17 05:00 93 144/94 (111) 06/26/17 04:18 97.7 18 06/26/17 04:01 93 142/89 (106) 06/26/17 02:00 82 124/77 (93) 06/26/17 01:04 18 06/25/17 23:00 95 135/82 (99) 06/25/17 21:30 92 137/87 (104) 06/25/17 21:21 95 141/85 (103) 06/25/17 21:20 18 06/25/17 21:20 97 100 06/25/17 21:15 97 100 06/25/17 21:10 105 99 06/25/17 21:05 106 06/25/17 21:05 99 06/25/17 21:00 99 06/25/17 21:00 98 06/25/17 21:00 163/107 (125) 06/25/17 20:55 96 98 06/25/17 20:45 99 97 06/25/17 20:40 107 99 06/25/17 20:35 102 98 06/25/17 20:30 100 98 06/25/17 20:25 99 98 06/25/17 20:20 99 98 06/25/17 20:15 100 98 06/25/17 20:10 102 98 06/25/17 20:09 99 06/25/17 20:06 98.9 18 06/25/17 20:00 18 06/25/17 20:00 99 157/105 (122) 06/25/17 19:00 18 06/25/17 19:00 105 158/104 (122) 06/25/17 18:00 108 154/105 (121) 06/25/17 17:47 18 06/25/17 17:00 18 06/25/17 16:01 105 154/95 (114) 06/25/17 16:00 18 Result Diagram: 06/26/17 1233 06/26/17 1233 Objective Remarks HEENT: normocephalic, well appearing Pulm: lungs clear to auscultation, no rails, rhonchi, or wheezing. no excessive use of accessory respiratory muscles Cardio: regular rate and rhythm. normal s1 and s2 Abdomen: Fundus is firm. No tenderness to palpation Medications and IVs Current Medications Medications (Trade) Dose Ordered Sig/Richard Route Start Time Stop Time Status Last Admin Lactated Ringer's 1,000 ml @ 75 mls/hr [id number] IV 06/25/17 15:00 06/26/17 09:43 Magnesium Sulfate 1,000 ml @ 50 mls/hr Q20H IV 06/25/17 15:00 06/26/17 00:46 (Calcium Gluconate Inj) 1 gm UNSCH PRN IV PUSH 06/25/17 12:45 (NS Flush) 2 ml BID IV FLUSH 06/25/17 21:00 (NS Flush) 2 ml UNSCH PRN IV FLUSH 06/25/17 12:45 (Tylenol) 650 mg Q4H PRN PO 06/25/17 12:45 06/26/17 04:19 (Motrin) 600 mg Q6H PRN PO 06/25/17 12:45 (Percocet 5-325 Mg) 1 tab Q4H PRN PO 06/25/17 12:45 06/25/17 19:00 (Percocet 5-325 Mg) 2 tab Q4H PRN PO 10/18/17 12:45 (Americaine 20% Top Spr) 1 spray Q4H PRN TOPICAL 06/25/17 12:45 (Tucks Pads) 1 applic QID PRN TOPICAL 06/25/17 12:45 (Marion-Colace) 2 tab Q12H PRN PO 06/25/17 12:45 (Ambien) 5 mg HS PRN PO 06/25/17 21:00 (Mag-Al Plus Susp Liq) 15 ml Q8H PRN PO 06/25/17 12:45 (Zofran Odt) 4 mg Q6H PRN PO 06/25/17 12:45 A/P Assessment and Plan 1. Day one continue to monitor her closely as she is preeclamptic and suffered from post hemorrhage. remove cerna catheter and allow her to ambulate regularly. She needs to remain inpatient for at least one more day. 2. Preeclampsia Mag has been discontinued Thrombocytopenia (55) and elevated transaminases (AST: 98 ALT:76): continue to monitor and recheck CBC and CMP tomorrow morning HTN (139/94): continue to monitor. 3. Post- Hemorrhage Uterine Atony: Recent CBC indicated an expected level of anemia (9.3) and thrombocytopenia (55) following her post- hemorrhage. We will continue to monitor her status and repeat CBC in the morning to help determine further action. Alexis Hodges M3 Jun 26, 2017 15:26
[2017-06-26] MEDS: IRON SUCROSE INJ 200 MG in SODIUM CHLORIDE 0.9% INJ 100 ML IV SCH (18:19)
[2017-06-26] MEDS: SODIUM CHLORIDE 0.9% FLUSH 10 ML FLUSH IV FLUSH PRN (18:24)
[2017-06-27] VITALS (11 sets, daily range): BP systolic 128–158; BP diastolic 84–107; PULSE 81–98; RESP 18–20; TEMP 97.9–98.7; O2SAT 98
[2017-06-27 04:39] LABS: HEMATOCRIT 23.3 % (35.0-46.0); MEAN CELL VOLUME 90.2 FL (80.0-100.0); MEAN CORPUSCULAR HGB CONC 34.4 % (32.0-36.0); PLATELET COUNT 52 TH/MM3 (150-450); RED BLOOD COUNT 2.58 MIL/MM3 (4.00-5.30); RED CELL DISTRIBUTION WIDTH 13.6 % (11.6-17.2)
[2017-06-27 04:44] LABS: REVIEW FLAG FINAL
[2017-06-27 04:56] LABS: BICARBONATE 24.6 MEQ/L (21.0-32.0); CALCIUM-PROTEIN CORRECTED 8.3 MG/DL (8.5-10.1); POTASSIUM 4.2 MEQ/L (3.5-5.1); TOTAL BILIRUBIN ADULT 0.3 MG/DL (0.2-1.0)
[2017-06-27] MEDS: SODIUM CHLORIDE 0.9% FLUSH 10 ML FLUSH IV FLUSH SCH ×2 (09:00→19:13)
--- NOTE | 2017-06-27 10:29 | HHI.DCPOC ---
Discharge Care Plan Diagnosis: (1) Thrombocytopenia (2) Pre-eclampsia in period (3) Normal vaginal delivery (4) Anemia Your Health Problems Are: Vaginal delivery Report Symptoms to Your Doctor -Temperature above 100.5 degrees -Redness, of incision or excessive or foul smelling drainage -Unusual pain or calf pain -Increased vaginal bleeding -Painful or difficulty urinating -Feelings of extreme sadness or anxiety after 2 weeks Goals to Promote Your Health * To prevent worsening of your condition and complications * To maintain your health at the optimal level Directions to Meet Your Goals Take your medications as prescribed Follow your dietary instruction Follow activity as directed Ensure plenty of rest for recovery Drink fluids for hydration Keep your appointments as scheduled Take your immunizations and boosters as scheduled If your symptoms worsen call your PCP, if no PCP go to Urgent Care Center or Emergency Room Smoking is Dangerous to Your Health. Avoid second hand smoke Call the 24-hour crisis hotline for domestic abuse at Lina White Jun 27, 2017 10:29
--- NOTE | 2017-06-27 10:40 | HHI.OB ---
Subjective Post Day: 2 Objective Vitals/I&O Vital Signs Date Time Temp Pulse Resp B/P (MAP) Pulse Ox O2 Delivery O2 Flow Rate FiO2 06/27/17 07:52 18 06/27/17 07:50 98.1 06/27/17 07:41 85 136/89 (105) 06/27/17 04:00 97.9 06/27/17 03:59 81 140/87 (104) 06/27/17 01:00 18 06/27/17 00:22 90 140/92 (108) 06/26/17 19:54 93 141/93 (109) 06/26/17 12:48 18 06/26/17 12:42 98.1 06/26/17 11:00 89 139/94 (109) Intake & Output 06/27/17 06/27/17 07:00 19:00 Intake Total 500 ml Balance 500 ml Intake IV Total 500 ml Objective Remarks GENERAL: Well-nourished, well-developed patient. CARDIOVASCULAR: Regular rate and rhythm without murmurs, gallops, or rubs. RESPIRATORY: Breath sounds equal bilaterally. No accessory muscle use. ABDOMEN/GI: Abdomen soft, non-tender. Fundus: Firm, non-tender at umbilicus. GENITOURINARY: Light to moderate bleeding. EXTREMITIES: No cyanosis or edema, non-tender, without signs of DVT. Medications and IVs Current Medications Medications (Trade) Dose Ordered Sig/Richard Route Start Time Stop Time Status Last Admin Lactated Ringer's 1,000 ml @ 75 mls/hr [id number] IV 06/25/17 15:00 06/26/17 09:43 Magnesium Sulfate 1,000 ml @ 50 mls/hr Q20H IV 06/25/17 15:00 06/26/17 00:46 (Calcium Gluconate Inj) 1 gm UNSCH PRN IV PUSH 06/25/17 12:45 (NS Flush) 2 ml BID IV FLUSH 06/25/17 21:00 06/26/17 21:00 (NS Flush) 2 ml UNSCH PRN IV FLUSH 06/25/17 12:45 06/26/17 18:24 (Tylenol) 650 mg Q4H PRN PO 06/25/17 12:45 06/26/17 04:19 (Motrin) 600 mg Q6H PRN PO 06/25/17 12:45 (Percocet 5-325 Mg) 1 tab Q4H PRN PO 06/25/17 12:45 06/25/17 19:00 (Percocet 5-325 Mg) 2 tab Q4H PRN PO 06/25/17 12:45 (Americaine 20% Top Spr) 1 spray Q4H PRN TOPICAL 06/25/17 12:45 (Tucks Pads) 1 applic QID PRN TOPICAL 06/25/17 12:45 (Marion-Colace) 2 tab Q12H PRN PO 06/25/17 12:45 (Ambien) 5 mg HS PRN PO 06/25/17 21:00 (Mag-Al Plus Susp Liq) 15 ml Q8H PRN PO 06/25/17 12:45 (Zofran Odt) 4 mg Q6H PRN PO 06/25/17 12:45 Iron Sucrose 200 mg/Sodium Chloride 110 ml @ 110 mls/hr DAILY@1800 IV 06/26/17 18:00 06/28/17 18:59 06/26/17 18:19 Assessment/Plan Assessment and Plan . Day 2 Pt doing well, not taking any pain medication at this time. Voiding without difficulty and ambulating in room without dizziness, SOB, or chest pain Preeclampsia Thrombocytopenia platelets stable at 52 today and elevated transaminases ( AST: 50, ALT:52): continue to monitor and recheck CBC and LFT tomorrow morning BP 130'2-140'2/90's: continue to monitor. Denies headache or visual changes. Post- Hemorrhage Fundus firm, bleeding moderate.: CBC today hgb 8.0/hct 23.3 will continue IV Venofer . Discharge Planning consider dc in 1-2 days pending labs will f/u in office for bp check and will check labs pp. Lina White Jun 27, 2017 10:40
[2017-06-27] MEDS: SODIUM CHLORIDE 0.9% FLUSH 10 ML FLUSH IV FLUSH PRN (10:41)
[2017-06-27] MEDS: IRON SUCROSE INJ 200 MG in SODIUM CHLORIDE 0.9% INJ 100 ML IV SCH (17:47)
[2017-06-27] MEDS: IBUPROFEN 600 MG TAB PO PRN (22:15)
[2017-06-27] MEDS: ACETAMINOPHEN 325 MG TAB PO PRN (22:15)
[2017-06-28 05:58] LABS: HEMATOCRIT 22.8 % (35.0-46.0); MEAN CELL VOLUME 91.9 FL (80.0-100.0); MEAN CORPUSCULAR HEMOGLOBIN 31.2 PG (27.0-34.0); PLATELET COUNT 64 TH/MM3 (150-450); RED BLOOD COUNT 2.48 MIL/MM3 (4.00-5.30); RED CELL DISTRIBUTION WIDTH 13.5 % (11.6-17.2); WHITE BLOOD COUNT 10.3 TH/MM3 (4.0-11.0)
[2017-06-28 06:06] LABS: REVIEW FLAG FINAL
[2017-06-28 06:09] LABS: ALT (GPT) 54 U/L (10-53); AST (GOT) 50 U/L (15-37)
[2017-06-28 06:11] LABS: ALKALINE PHOSPHATASE 95 U/L (45-117); INDIRECT BILIRUBIN 0.2 MG/DL (0.0-0.8); TOTAL BILIRUBIN ADULT 0.3 MG/DL (0.2-1.0)
[2017-06-28] MEDS: IBUPROFEN 600 MG TAB PO PRN (06:21)
[2017-06-28 08:17] VITALS: BP 142/89; PULSE 86; RESP 18; TEMP 98.5
--- NOTE | 2017-06-28 09:34 | HHI.OB ---
Subjective Post Day: 2 Remarks no headache, nausea or vomiting doing well ready for discharge on low dose BP med for 1-2 weeks Objective Vitals/I&O Vital Signs Date Time Temp Pulse Resp B/P (MAP) Pulse Ox O2 Delivery O2 Flow Rate FiO2 06/28/17 08:17 98.5 18 06/28/17 08:17 86 142/89 (106) 06/27/17 20:50 98.7 06/27/17 16:15 146/92 (110) 06/27/17 15:28 98 158/107 (124) 06/27/17 11:55 128/84 (99) 06/27/17 11:55 98.6 83 20 98 Objective Remarks GENERAL: Well-nourished, well-developed patient. CARDIOVASCULAR: Regular rate and rhythm without murmurs, gallops, or rubs. RESPIRATORY: Breath sounds equal bilaterally. No accessory muscle use. ABDOMEN/GI: Abdomen soft, non-tender. Fundus: Firm, non-tender at umbilicus. GENITOURINARY: Light to moderate bleeding. EXTREMITIES: No cyanosis or edema, non-tender, without signs of DVT. Medications and IVs Current Medications Medications (Trade) Dose Ordered Sig/Richard Route Start Time Stop Time Status Last Admin Lactated Ringer's 1,000 ml @ 75 mls/hr [id number] IV 06/25/17 15:00 06/26/17 09:43 Magnesium Sulfate 1,000 ml @ 50 mls/hr Q20H IV 06/25/17 15:00 06/26/17 00:46 (Calcium Gluconate Inj) 1 gm UNSCH PRN IV PUSH 06/25/17 12:45 (NS Flush) 2 ml BID IV FLUSH 06/25/17 21:00 06/27/17 19:13 (NS Flush) 2 ml UNSCH PRN IV FLUSH 06/25/17 12:45 06/27/17 10:41 (Tylenol) 650 mg Q4H PRN PO 06/25/17 12:45 06/27/17 22:15 (Motrin) 600 mg Q6H PRN PO 06/25/17 12:45 06/28/17 06:21 (Percocet 5-325 Mg) 1 tab Q4H PRN PO 06/25/17 12:45 06/25/17 19:00 (Percocet 5-325 Mg) 2 tab Q4H PRN PO 06/25/17 12:45 (Americaine 20% Top Spr) 1 spray Q4H PRN TOPICAL 06/25/17 12:45 (Tucks Pads) 1 applic QID PRN TOPICAL 06/25/17 12:45 (Marion-Colace) 2 tab Q12H PRN PO 06/25/17 12:45 (Ambien) 5 mg HS PRN PO 06/25/17 21:00 (Mag-Al Plus Susp Liq) 15 ml Q8H PRN PO 06/25/17 12:45 (Zofran Odt) 4 mg Q6H PRN PO 06/25/17 12:45 Iron Sucrose 200 mg/Sodium Chloride 110 ml @ 110 mls/hr DAILY@1800 IV 06/26/17 18:00 06/28/17 18:59 06/27/17 17:47 Assessment/Plan Assessment and Plan . Day 2 Pt doing well, not taking any pain medication at this time. Voiding without difficulty and ambulating in room without dizziness, SOB, or chest pain Preeclampsia Thrombocytopenia platelets stable at 52 today and elevated transaminases ( AST: 50, ALT:52): continue to monitor and recheck CBC and LFT tomorrow morning BP 130'2-140'2/90's: continue to monitor. Denies headache or visual changes. Post- Hemorrhage Fundus firm, bleeding moderate.: CBC today hgb 8.0/hct 23.3 will continue IV Venofer . Discharge Planning home with labatelol RTO Dr. Mccullough one week Esmer Perry MD Jun 28, 2017 09:34
[2017-06-28] MEDS ORDERED: HEMOTAB PO (09:36)
[2017-06-28] MEDS ORDERED: LABE100T2 PO (09:37)
--- NOTE | 2017-06-28 09:37 | HHI.DCPOC ---
Discharge Care Plan Report Symptoms to Your Doctor -Temperature above 100.5 degrees -Redness, of incision or excessive or foul smelling drainage -Unusual pain or calf pain -Increased vaginal bleeding -Painful or difficulty urinating -Feelings of extreme sadness or anxiety after 2 weeks Goals to Promote Your Health * To prevent worsening of your condition and complications * To maintain your health at the optimal level Directions to Meet Your Goals Take your medications as prescribed Follow your dietary instruction Follow activity as directed Ensure plenty of rest for recovery Drink fluids for hydration Keep your appointments as scheduled Take your immunizations and boosters as scheduled If your symptoms worsen call your PCP, if no PCP go to Urgent Care Center or Emergency Room Smoking is Dangerous to Your Health. Avoid second hand smoke Call the 24-hour crisis hotline for domestic abuse at Esmer Perry MD Jun 28, 2017 09:37
[2017-06-28] MEDS: LACTATED RINGER'S 1000 ML INJ 1,000 ML IV SCH (09:40)
[2017-06-28] MEDS: SODIUM CHLORIDE 0.9% FLUSH 10 ML FLUSH IV FLUSH SCH (11:00)
[2017-06-28] MEDS: MAGNESIUM SULFATE 40 GM PREMIX 1,000 ML IV SCH (11:13)
== END 2017-06-28 11:32 | disposition home or self-care (01) | DRG 774 ==
LOC: H2EB 12:02 → H2EA 06-25 15:00 → H1EA 06-27 08:06
PROVIDERS: ADMIT Obstetrics & Gynecology; ATTEND Obstetrics & Gynecology
PROC: 0W8NXZZ Division of Female Perineum, External Approach (ICD-10-PCS; principal; 2017-06-24)
PROC: 10E0XZZ Delivery of Products of Conception, External Approach (ICD-10-PCS; 2017-06-24)
PROC: 0KQM0ZZ Repair Perineum Muscle, Open Approach (ICD-10-PCS; 2017-06-24)
PROC: 00HU33Z Insertion of Infusion Device into Spinal Canal, Percutaneous Approach (ICD-10-PCS; 2017-06-24)
PROC: 3E0R3BZ Introduction of Anesthetic Agent into Spinal Canal, Percutaneous Approach (ICD-10-PCS; 2017-06-24)
DX: O14.94 Unspecified pre-eclampsia, complicating childbirth (principal); O72.1 Other immediate postpartum hemorrhage; D69.6 Thrombocytopenia, unspecified; O99.12 Other diseases of the blood and blood-forming organs and certain disorders involving the immune mechanism complicating childbirth; Z37.0 Single live birth; Z3A.39 39 weeks gestation of pregnancy; O16.4 Unspecified maternal hypertension, complicating childbirth; O99.824 Streptococcus B carrier state complicating childbirth; O99.02 Anemia complicating childbirth; D64.9 Anemia, unspecified; O70.1 Second degree perineal laceration during delivery
CPT/HCPCS: 59025; 80053; 80076; 81001; 84550; 85025; 85027; 86900; 86901; 87086; J1756; J2540; J2590; J3010; J3475; J7120